=== PATIENT | female | born 1990 | race Caucasian/White ===

== ENCOUNTER 2019-02-13 07:05 | Inpatient (IN) | payer OTHER ==
[~2019-02-13 07:05] MED LIST: Bupivacaine 0.25% 10 ML SDV ONE
[2019-02-13] MEDS ORDERED: Misoprostol 25 MCG (1/4 of 100 MCG) Tab ONE ×3 (07:35→16:04)
[2019-02-13] MEDS: Misoprostol 100 MCG Tab VAG PRN ×3 (07:37→16:13)
[2019-02-13] MEDS ORDERED: Sodium Chloride 0.9% 10 ML Syringe FLUSH PRN (07:40)
[2019-02-13] MEDS ORDERED: Ondansetron 4 MG/2 ML SDV IVPUSH PRN (07:40)
[2019-02-13] MEDS ORDERED: Nalbuphine 10 MG/1 ML Vial IVPUSH PRN (07:40)
[2019-02-13] MEDS ORDERED: Oxytocin/Lactated Ringers 10 UNIT/1,000 ML BAG IV SCH ×2 (07:45)
--- NOTE | 2019-02-13 07:45 | PCM.LDHP ---
L&D History of Present Illness - General Date of Service: 02/13/19 Admit Problem/Dx: Patient Status Order with Admit Dx/Problem 02/13/19 07:40 Patient Status [ADT] Routine Admission Diagnosis/Problem Admission Diagnosis/Problem Normal in third trimester Source of Information: Patient History Limitations: Reports: No Limitations - History of Present Illness Introduction:: Patient is a 28 y/o presents at 40 1/7 wks for IOL. Doing well today. Some titi rtinidad, but no significant contractions. Notes good FM. No other issues today - Related Data Allergies/Adverse Reactions: Allergies Allergy/AdvReac Type Severity Reaction Status Date / Time No Known Allergies Allergy Verified 02/13/19 08:08 Home Medications: Home Meds Enoxaparin Sodium [Lovenox] 40 mg SQ 02/13/19 [History] Ferrous Gluconate 02/13/19 [History] Levothyroxine [Synthroid] 100 mcg PO ACBREAKFAST 02/13/19 [History] Vits #93/Iron Fum/FA [ Formula Tablet] 02/13/19 [History] Past Medical History Respiratory History: Reports: PE (11/2017) ADMISSIONS ASSISTANT History: Reports: Endometriosis, : 1 Para: 0 LMP (Approximate): Endocrine/Metabolic History: Reports: Hypothyroidism - Infectious Disease History Infectious Disease History: Reports: Other (See Below) (Lyme Disease) - Past Surgical History HEENT Surgical History: Reports: Oral Surgery (wisdom tooth extraction) Female Surgical History: Reports: Other (See Below) (Diagnostic laparoscopy/ correction of ovarian torsion) Social & Family History - Tobacco Use Smoking Status *Q: Never Smoker - Alcohol Use Alcohol Use History: No - Recreational Drug Use Recreational Drug Use: No H&P Review of Systems - Review of Systems: Review Of Systems: See Below General: Reports: No Symptoms Pulmonary: Reports: No Symptoms Cardiovascular: Reports: No Symptoms Gastrointestinal: Reports: No Symptoms Genitourinary: Reports: No Symptoms Musculoskeletal: Reports: No Symptoms Psychiatric: Reports: No Symptoms Neurological: Reports: No Symptoms L&D Exam - Exam Exam: See Below - Vital Signs Vital Signs: Last Vital Signs Temp 36.7 C 02/13/19 07:20 Pulse 98 02/13/19 07:20 Resp 14 02/13/19 07:20 BP 118/82 02/13/19 07:20 Pulse Ox 98 02/13/19 07:20 - OB Specific Contraction Intensity: Irritability Movement: Active Heart Tones: Present Heart Tones per Min: 130 Heart Rate (FHR) Variability: Moderate (6-25 bmp) Presentation: Vertex - Medrano Score Medrano Score Cervix Position: Posterior Medrano Score Consistency: Soft Medrano Score Effacement: 51-70% Medrano Score Dilation: 1-2 cm Medrano Score Infant's Station: -1 ,0 Medrano Score Total: 7 - Exam General: Alert, Oriented, Cooperative Lungs: Clear to Auscultation, Normal Respiratory Effort Cardiovascular: Regular Rate, Regular Rhythm GI/Abdominal Exam: Soft, Non-Tender Genitourinary: Normal external exam Extremities: Normal Inspection Skin: Warm, Dry, Intact - Problem List (1) 40 weeks gestation of SNOMED Code(s): 60760683 ICD Code: Z3A.40 - 40 WEEKS GESTATION OF Status: Acute Current Visit: Yes (2) History of pulmonary embolism SNOMED Code(s): 560308929 ICD Code: Z86.711 - PERSONAL HISTORY OF PULMONARY EMBOLISM Status: Acute Current Visit: Yes (3) Hypothyroid SNOMED Code(s): 68154960 ICD Code: E03.9 - HYPOTHYROIDISM, UNSPECIFIED Status: Acute Current Visit : Yes Qualifiers: Hypothyroidism type: unspecified Qualified Code(s): E03.9 - Hypothyroidism , unspecified Problem List Initiated/Reviewed/Updated: Yes Orders Last 24hrs: Active Orders 24 hr Category Date Time Status Patient Status [ADT] Routine ADT 02/13/19 07:40 Ordered Activity as Tolerated [RC] PFP Care 02/13/19 07:40 Ordered Communication Order [RC] ASDIRECTED Care 02/13/19 07:40 Ordered Communication Order [RC] ASDIRECTED Care 02/13/19 07:40 Ordered Communication Order [RC] ASDIRECTED Care 02/13/19 07:40 Ordered Heart Tones [RC] ASDIRECTED Care 02/13/19 07:40 Ordered Monitoring [RC] INTERMITTENT Care 02/13/19 07:40 Ordered Non Stress Test [RC] PER UNIT ROUTINE Care 02/13/19 07:40 Ordered Notify Provider [RC] ASDIRECTED Care 02/13/19 07:40 Ordered Notify Provider [RC] PRN Care 02/13/19 07:40 Ordered Peripheral IV Care [RC] . DIRECTED Care 02/13/19 07:40 Ordered Vital Signs [RC] PER UNIT ROUTINE Care 02/13/19 07:40 Ordered Regular Diet [DIET] Diet 02/13/19 Breakfast Ordered CBC W/O DIFF,HEMOGRAM [HEME] Routine Lab 02/13/19 07:40 Ordered RAPID PLASMA REAGIN,RPR [CHEM] Routine Lab 02/13/19 07:40 Ordered TYPE AND SCREEN [BBK] Routine Lab 02/13/19 07:40 Ordered Lactated Ringers [Ringers, Lactated] 1,000 ml Med 02/13/19 07:45 Ordered IV ASDIRECTED Nalbuphine [Nubain] Med 02/13/19 07:40 Ordered 10 mg IVPUSH Q2H PRN Ondansetron [Zofran] Med 02/13/19 07:40 Ordered 4 mg IVPUSH Q4H PRN Oxytocin/Lactated Ringers [Pitocin in LR 10 Units/1,000 Med 02/13/19 07:45 Ordered ML] 10 unit in 1,000 ml IV .CONTINUOUS Oxytocin/Lactated Ringers [Pitocin in LR 10 Units/1,000 Med 02/13/19 07:45 Ordered ML] 10 unit in 1,000 ml IV TITRATE Sodium Chloride 0.9% [Saline Flush] Med 02/13/19 07:40 Ordered 10 ml FLUSH ASDIRECTED PRN miSOPROStol [Cytotec] Med 02/13/19 07:40 Ordered 25 mcg VAG Q4H PRN Electronic Heart Tones Ext w TOCO [WOMSER] Oth 02/13/19 07:40 Ordered Routine Electronic Heart Tones Internal [WOMSER] Per Unit Oth 02/13/19 07:40 Ordered Routine Medication Administration Instruction [OM.PC] Oth 02/13/19 07:45 Ordered ASDIRECTED Peripheral IV Insertion Adult [OM.PC] Routine Oth 02/13/19 07:40 Ordered Resuscitation Status Routine Resus Stat 02/13/19 07:40 Ordered Medication Orders Lactated Ringer's (Ringers, Lactated) 1,000 mls @ 100 mls/hr IV ASDIRECTED MARIANNA Oxytocin/Lactated Ringer's (Pitocin In Lr 10 Units/1,000 Ml) 10 unit in 1,000 mls @ 500 mls/hr IV .CONTINUOUS MARIANNA Oxytocin/Lactated Ringer's (Pitocin In Lr 10 Units/1,000 Ml) 10 unit in 1,000 mls @ 12 mls/hr IV TITRATE MARIANNA; Protocol Misoprostol (Cytotec) 25 mcg VAG Q4H PRN PRN Reason: cervical ripening Nalbuphine HCl (Nubain) 10 mg IVPUSH Q2H PRN PRN Reason: Pain Ondansetron HCl (Zofran) 4 mg IVPUSH Q4H PRN PRN Reason: Nausea/Vomiting Sodium Chloride (Saline Flush) 10 ml FLUSH ASDIRECTED PRN PRN Reason: Keep Vein Open Assessment/Plan Comment:: 28 y/o at 40 1/7 wks presents for elective IOL * Labs * GBS negative, no need for antibiotics * Cytotec, pitocin/AROM when able * Pain management per patient preference * On prophylactic lovenox, last dose yesterday 02/12 AM. Will restart and plan for 6 weeks treatment * Anticipate
[2019-02-13] MEDS: Lactated Ringers 1,000 ML IV SCH ×3 (18:38→19:42)
[2019-02-13] MEDS ORDERED: fentaNYL 100 MCG/2 ML SDV EPIDUR ONE (19:13)
[2019-02-13] MEDS ORDERED: Bupivacaine/fentaNYL/NS 100 ML Bag EPIDUR SCH (19:15)
[2019-02-13] MEDS ORDERED: fentaNYL 100 MCG/2 ML SDV ONE (19:17)
--- NOTE | 2019-02-13 19:54 | PCM.PREANE ---
Preanesthetic Assessment - Anesthesia/Transfusion/Family Hx Anesthesia History: Prior Anesthesia Without Reaction Family History of Anesthesia Reaction: No Transfusion History: No Prior Transfusion(s) Intubation History: Unknown - Review of Systems General: No Symptoms Pulmonary: No Symptoms Cardiovascular: No Symptoms Gastrointestinal: No Symptoms Neurological: No Symptoms Other: Reports: None - Physical Assessment O2 Sat by Pulse Oximetry: 98 Respiratory Rate: 14 Vital Signs: Last Vital Signs Temp 36.7 C 02/13/19 07:20 Pulse 98 02/13/19 07:20 Resp 14 02/13/19 07:20 BP 118/82 02/13/19 07:20 Pulse Ox 98 02/13/19 07:20 Height: 1.57 m Weight: 70.398 kg ASA Class: 1E Mental Status: Alert & Oriented x3 Airway Class: Mallampati = 1 ROM/Head Extension: Full Lungs: Clear to Auscultation, Normal Respiratory Effort Cardiovascular: Regular Rate, Regular Rhythm, No Murmurs - Lab Values: Laboratory Last Values WBC 6.99 K/mm3 (3.98-10.04) 02/13/19 09:30 RBC 4.15 M/mm3 (3.98-5.22) 02/13/19 09:30 Hgb 11.4 gm/L (11.2-15.7) 02/13/19 09:30 Hct 34.6 % (34.1-44.9) 02/13/19 09:30 MCV 83.4 fl (79.4-94.8) 02/13/19 09:30 MCH 27.5 pg (25.6-32.2) 02/13/19 09:30 MCHC 32.9 g/dl (32.2-35.5) 02/13/19 09:30 RDW Std Deviation 42.9 fL (36.4-46.3) 02/13/19 09:30 Plt Count 137 K/mm3 (182-369) L 02/13/19 09:30 MPV 11.9 fl (9.4-12.3) 02/13/19 09:30 Blood Type A POSITIVE 02/13/19 07:30 Gel Antibody Screen Negative 02/13/19 07:30 - Allergies Allergies/Adverse Reactions: Allergies Allergy/AdvReac Type Severity Reaction Status Date / Time No Known Allergies Allergy Verified 02/13/19 08:08 - Anesthesia Plan Pre-Op Medication Ordered: None - Acknowledgements Anesthesia Type Planned: Epidural Pt an Appropriate Candidate for the Planned Anesthesia: Yes Alternatives and Risks of Anesthesia Discussed w Pt/Guardian: Yes Pt/Guardian Understands and Agrees with Anesthesia Plan: Yes PreAnesthesia Questionnaire Respiratory History: Reports: PE (11/2017) FENCE [employer]ER History: Reports: Endometriosis, Other OB/BYN History: infertility Musculoskeletal History: Reports: Fracture, Other (See Below) Other Musculoskeletal History: fibula fracture 10/2017 Endocrine/Metabolic History: Reports: Hypothyroidism Hematologic History: Reports: Anticoagulation Therapy, Other (See Below) Other Hematologic History: on prophylactic lovenox for history of PE - Infectious Disease History Infectious Disease History: Reports: Other (See Below) (Lyme Disease) Other Infectious Disease History: lyme disease 2003 - Past Surgical History HEENT Surgical History: Reports: Oral Surgery (wisdom tooth extraction) Female Surgical History: Reports: Other (See Below) (Diagnostic laparoscopy/ correction of ovarian torsion) - SUBSTANCE USE Smoking Status *Q: Never Smoker Recreational Drug Use History: No - HOME MEDS Home Medications: Home Meds Enoxaparin Sodium [Lovenox] 40 mg SQ 02/13/19 [History] Ferrous Gluconate 02/13/19 [History] Levothyroxine [Synthroid] 100 mcg PO ACBREAKFAST 02/13/19 [History] Vits #93/Iron Fum/FA [ Formula Tablet] 02/13/19 [History] - CURRENT (IN HOUSE) MEDS Current Meds: Current Medications Fentanyl/Bupivacaine HCl (Fentanyl/Bupivacaine/Ns 2 Mcg-0.125% 100 Ml) 100 ml EPIDUR ASDIRECTED MARIANNA Lactated Ringer's (Ringers, Lactated) 1,000 mls @ 100 mls/hr IV ASDIRECTED MARIANNA Last Admin: 02/13/19 19:42 Dose: 999 mls/hr Oxytocin/Lactated Ringer's (Pitocin In Lr 10 Units/1,000 Ml) 10 unit in 1,000 mls @ 500 mls/hr IV .CONTINUOUS MARIANNA Oxytocin/Lactated Ringer's (Pitocin In Lr 10 Units/1,000 Ml) 10 unit in 1,000 mls @ 12 mls/hr IV TITRATE MARIANNA; Protocol Levothyroxine Sodium (Synthroid) 100 mcg PO ACBREAKFAST MARIANNA Nalbuphine HCl (Nubain) 10 mg IVPUSH Q2H PRN PRN Reason: Pain Ondansetron HCl (Zofran) 4 mg IVPUSH Q4H PRN PRN Reason: Nausea/Vomiting Sodium Chloride (Saline Flush) 10 ml FLUSH ASDIRECTED PRN PRN Reason: Keep Vein Open Discontinued Medications Fentanyl (Sublimaze) 100 mcg EPIDUR ONETIME ONE Stop: 02/13/19 19:14 Fentanyl (Sublimaze) Confirm Administered Dose 100 mcg .ROUTE .STK-MED ONE Stop: 02/13/19 19:18 Misoprostol (Cytotec) Confirm Administered Dose 25 mcg .ROUTE .STK-MED ONE Stop: 02/13/19 07:36 Last Admin: 02/13/19 07:55 Dose: Not Given Misoprostol (Cytotec) 25 mcg VAG Q4H PRN PRN Reason: cervical ripening Last Admin: 02/13/19 16:13 Dose: 25 mcg Misoprostol (Cytotec) Confirm Administered Dose 25 mcg .ROUTE .STK-MED ONE Stop: 02/13/19 11:18 Last Admin: 02/13/19 11:23 Dose: Not Given Misoprostol (Cytotec) Confirm Administered Dose 25 mcg .ROUTE .STK-MED ONE Stop: 02/13/19 16:05 Last Admin: 02/13/19 16:08 Dose: Not Given
--- NOTE | 2019-02-13 19:54 | PCM.POSTAN ---
POST ANESTHESIA ASSESSMENT - MENTAL STATUS Mental Status: Alert - RESPIRATORY Respiratory Status: Respiratory Rate WNL, Airway Patent, O2 Saturation Stable - CARDIOVASCULAR CV Status: Pulse Rate WNL, Blood Pressure Stable - GASTROINTESTINAL GI Status: No Symptoms - POST OP HYDRATION Hydration Status: Adequate & Stable
--- NOTE | 2019-02-13 22:15 | PCM.PNLD ---
Labor Progress Note - VS & Meds Vital Signs: Last Vital Signs Temp 36.7 C 02/13/19 07:20 Pulse 98 02/13/19 07:20 Resp 14 02/13/19 19:54 BP 118/82 02/13/19 07:20 Pulse Ox 98 02/13/19 19:54 Active Medications: Current Medications Fentanyl/Bupivacaine HCl (Fentanyl/Bupivacaine/Ns 2 Mcg-0.125% 100 Ml) 100 ml EPIDUR ASDIRECTED MARIANNA Lactated Ringer's (Ringers, Lactated) 1,000 mls @ 100 mls/hr IV ASDIRECTED MARIANNA Last Admin: 02/13/19 19:42 Dose: 999 mls/hr Oxytocin/Lactated Ringer's (Pitocin In Lr 10 Units/1,000 Ml) 10 unit in 1,000 mls @ 500 mls/hr IV .CONTINUOUS MARIANNA Oxytocin/Lactated Ringer's (Pitocin In Lr 10 Units/1,000 Ml) 10 unit in 1,000 mls @ 12 mls/hr IV TITRATE MARIANNA; Protocol Last Titration: 02/13/19 21:48 Dose: 6 munits/min, 36 mls/hr Levothyroxine Sodium (Synthroid) 100 mcg PO ACBREAKFAST MARIANNA Nalbuphine HCl (Nubain) 10 mg IVPUSH Q2H PRN PRN Reason: Pain Ondansetron HCl (Zofran) 4 mg IVPUSH Q4H PRN PRN Reason: Nausea/Vomiting Sodium Chloride (Saline Flush) 10 ml FLUSH ASDIRECTED PRN PRN Reason: Keep Vein Open Discontinued Medications Fentanyl (Sublimaze) 100 mcg EPIDUR ONETIME ONE Stop: 02/13/19 19:14 Fentanyl (Sublimaze) Confirm Administered Dose 100 mcg .ROUTE .STK-MED ONE Stop: 02/13/19 19:18 Last Admin: 02/13/19 20:04 Dose: Not Given Misoprostol (Cytotec) Confirm Administered Dose 25 mcg .ROUTE .STK-MED ONE Stop: 02/13/19 07:36 Last Admin: 02/13/19 07:55 Dose: Not Given Misoprostol (Cytotec) 25 mcg VAG Q4H PRN PRN Reason: cervical ripening Last Admin: 02/13/19 16:13 Dose: 25 mcg Misoprostol (Cytotec) Confirm Administered Dose 25 mcg .ROUTE .STK-MED ONE Stop: 02/13/19 11:18 Last Admin: 02/13/19 11:23 Dose: Not Given Misoprostol (Cytotec) Confirm Administered Dose 25 mcg .ROUTE .STK-MED ONE Stop: 02/13/19 16:05 Last Admin: 02/13/19 16:08 Dose: Not Given - Uterine Contractions Uterine Monitoring Mode: External [place] Contraction Intensity: Moderate Uterine Resting Tone: Soft - Monitoring Monitor Mode: External Ultrasound Heart Rate (FHR) Baseline: 130 Heart Rate (FHR) Variability: Moderate (6-25 bmp) Accelerations: Present, 15x15 Decelerations: None Strip Review: Category I - Vaginal Exam Dilation (cm): 1.5 Effacement (Percent): 70 Station: -1 Cervical Position: Midposition - Labor Progress (Free Text) Labor Progress: Doing well. Comfortable with epidural. S/p 3 doses of cytotec. Pitocin at 6. Todd bulb replaced (tried to place earlier, but fell out as not completely through cervix). Plan AROM once todd removed
[2019-02-14] MEDS: Lactated Ringers 1,000 ML IV SCH (04:58)
[2019-02-14] MEDS ORDERED: Levothyroxine 100 MCG Tab PO SCH (06:00)
--- NOTE | 2019-02-14 06:15 | PCM.SN ---
- Free Text/Narrative Note: 0600 Contacted by nursing at about 0100 they thought patient was maybe close to 8 cm , but with BBOW. At about 0230 I checked patient and thought at that time she as more like 6-7 and still fairly thick. AROM done at that time with release of meconium stained fluid. Pitocin restarted at about 0300 due to spacing of contraction pattern. Nursing check patient again around 0530 and concerns for minimal cervical change. I checked patient and feels she has slightly changed from my last exam. Now more like 7 cm and slightly thinner. IUPC Placed. Will continue to increase as able and recheck in 2 hours or sooner if indicated Mattie Antonio
--- NOTE | 2019-02-14 08:30 | PCM.SN ---
- Free Text/Narrative Note: 0800 Reassessed cervix and still similar to 0600 check. Pitocin now at 12. Contraction pattern not adequate. IUPC did dislodge with nursing last assessment. Did review concerns of minimal change throughout an extended period of time. Discussed options of replacing IUPC, continuing to increase pitocin and reassess in a few hours vs proceeding with repeat . Patient would like attempt at IUPC replacement and continued pitocin titration if possible. Will reassess at 1000 Mattie Antonio MD
[2019-02-14] MEDS ORDERED: ceFAZolin 2 GM in Premix Bag 1 BAG IV ONE (09:55)
[2019-02-14] MEDS ORDERED: Nalbuphine 10 MG/1 ML Vial IVPUSH PRN (09:55)
[2019-02-14] MEDS ORDERED: Citric Acid/Sodium Citrate Solution 30 ML Cup PO ONE (09:55)
[2019-02-14] MEDS ORDERED: Metoclopramide 10 MG/2 ML SDV IVPUSH ONE (09:55)
--- NOTE | 2019-02-14 09:59 | PCM.SN ---
- Free Text/Narrative Note: 1000 Patient without further change. Agrees to . Risks/benefits reviewed. Consent signed. OR crew alerted
--- NOTE | 2019-02-14 10:06 | PCM.OPNOTE ---
- General Post-Op/Procedure Note Date of Surgery/Procedure: 02/14/19 Operative Procedure(s): Primary low transverse Findings: Baby boy in a vertex presentation with weight of 3390 grams and APGARS of 8 & 9. Normal appearance of the uterus, fallopian tubes, and ovaries. Pre Op Diagnosis: 40 weeks gestation. FTP in 1st stage Post-Op Diagnosis: Same Anesthesia Technique: Epidural Primary Surgeon: Mattie Antonio Secondary Surgeon: Alexandra Pitt Anesthesia Provider: Ranjit Herrera Reason Palliative Nurse Was Necessary: Speed/safety of procedure Pathology: Cord blood collected. Placenta discarded Fluid Replacement, Intraop: 700 Output, Urine Amount: 200 EBL in mLs: 700 Complications: None Condition: Good Free Text/Narrative:: The risks, benefits, indications, potential complications, and alternatives were explained to the patient and informed consent obtained. After induction of anesthesia, the patient was placed in a supine position and then draped and prepped in the usual sterile manner. A Pfannenstiel incision was made and carried down through the subcutaneous tissue to the fascia. Fascial incision was made and extended transversely. The fascia was from the underlying rectus tissue superiorly and inferiorly. The peritoneum was identified and entered. Peritoneal incision was extended longitudinally. The utero-vesical peritoneal reflection was incised transversely and the bladder flap was bluntly freed from the lower uterine segment. A low transverse uterine incision was made sharply with a scalpel and extended bluntly in a cephalocaudad direction. A baby boy was delivered from a vertex presentation with APGARS as above. After the umbilical cord was clamped and cut cord blood was obtained for evaluation. The placenta was removed intact and appeared normal. The uterus was exteriorized and cleared of clots. The uterine outline, tubes and ovaries appeared normal. The uterine incision was closed with running locked sutures of 0 Vicryl. Hemostasis was obtained with a second imbricating layer of 0 vicryl. The uterus was then placed back into the abdomen. The infracolic gutters were cleared of blood clots. The fascia was then reapproximated with running sutures of 0 Vicryl. The subcutaneous tissue was irrigated with sterile warm normal saline, hemostasis obtained with cautery. This layer was also closed with a running 0 vicryl. The skin was reapproximated with running Subcuticular 4-0 monocryl sutures. Instrument, sponge, and needle counts were correct prior the abdominal closure and at the conclusion of the case.
[2019-02-14] MEDS ORDERED: Metoclopramide 10 MG/2 ML SDV ONE (10:16)
[2019-02-14] MEDS ORDERED: Citric Acid/Sodium Citrate Solution 30 ML Cup ONE (10:16)
[2019-02-14] MEDS ORDERED: Oxytocin 10 Units/1 ML SDV ONE ×3 (10:46)
[2019-02-14] MEDS ORDERED: Lidocaine 2% with EPINEPHrine 1:200,000 20 ML SDV ONE ×2 (10:47→11:09)
[2019-02-14] MEDS ORDERED: Bupivacaine 0.25% 10 ML SDV ONE (11:10)
[2019-02-14] MEDS ORDERED: Bupivacaine 0.5% 30 ML SDV ONE (11:13)
[2019-02-14] MEDS ORDERED: Ketorolac 30 MG/ML SDV ONE (11:30)
[2019-02-14] MEDS ORDERED: Midazolam 1 MG/ML 2 ML SDV ONE (11:38)
[2019-02-14] MEDS ORDERED: Meperidine 50 MG/ML Vial ONE (11:44)
--- NOTE | 2019-02-14 12:14 | PCM.POSTAN ---
POST ANESTHESIA ASSESSMENT - RESPIRATORY Respiratory Status: Respiratory Rate WNL, Airway Patent, O2 Saturation Stable, Supplemental Oxygen - CARDIOVASCULAR CV Status: Pulse Rate WNL, Blood Pressure Stable - GASTROINTESTINAL GI Status: No Symptoms - POST OP HYDRATION Hydration Status: Adequate & Stable
[2019-02-14] MEDS ORDERED: Naloxone 0.4 MG/ML SDV IVPUSH PRN (14:54)
[2019-02-14] MEDS ORDERED: Lanolin 100% Cream 7 GM Tube TOP PRN (14:54)
[2019-02-14] MEDS ORDERED: Acetaminophen 325 MG Tab PO PRN (14:54)
[2019-02-14] MEDS ORDERED: diphenhydrAMINE 50 MG/ML SDV IVPUSH PRN (14:54)
[2019-02-14] MEDS ORDERED: Ondansetron 4 MG/2 ML SDV IV PRN (14:54)
[2019-02-14] MEDS ORDERED: ePHEDrine 50 MG/ML SDV IVPUSH PRN (14:54)
[2019-02-14] MEDS ORDERED: Dextrose 5%-Lactated Ringers 1,000 ML IV SCH (14:54)
[2019-02-14] MEDS: Acetaminophen/oxyCODONE 325-5 MG Tab PO PRN ×2 (15:39→20:53)
[2019-02-14] MEDS: Ketorolac 30 MG/ML SDV IVPUSH SCH (17:52)
[2019-02-15] MEDS: Ketorolac 30 MG/ML SDV IVPUSH SCH (00:19)
[2019-02-15] MEDS ORDERED: Enoxaparin 40 MG/0.4 ML Syringe SUBCUT SCH (03:00)
[2019-02-15] MEDS ORDERED: Enoxaparin 40 MG/0.4 ML Syringe SUBCUT ONE (03:00)
[2019-02-15] MEDS: Acetaminophen/oxyCODONE 325-5 MG Tab PO PRN ×4 (03:03→16:39)
[2019-02-15] MEDS: Ibuprofen 600 MG Tab PO PRN ×3 (06:45→20:57)
--- NOTE | 2019-02-15 07:29 | PCM.PNPP ---
- General Info Date of Service: 02/15/19 Functional Status: Reports: Pain Controlled, Tolerating Diet, Ambulating - Review of Systems General: Reports: No Symptoms Pulmonary: Reports: No Symptoms Cardiovascular: Reports: No Symptoms Gastrointestinal: Reports: Abdominal Pain (managed with medications ) Genitourinary: Reports: No Symptoms Musculoskeletal: Reports: No Symptoms Neurological: Reports: No Symptoms - Patient Data Vital Signs - Most Recent: Last Vital Signs Temp 36.2 C 02/15/19 03:04 Pulse 82 02/15/19 03:04 Resp 14 02/15/19 05:00 BP 110/80 02/15/19 03:04 Pulse Ox 100 02/15/19 05:00 Weight - Most Recent: 70.398 kg I&O - Last 24 Hours: Intake & Output 02/14/19 02/15/19 02/15/19 22:59 06:59 14:59 Intake Total 1740 1600 Output Total 1275 1250 Balance 465 350 Lab Results - Last 24 Hours: Laboratory Results - last 24 hr 02/13/19 02/15/19 Range/Units 07:30 05:39 WBC 13.15 H (3.98-10.04) K/mm3 RBC 3.28 L (3.98-5.22) M/mm3 Hgb 9.0 L D (11.2-15.7) gm/L Hct 27.5 L (34.1-44.9) % MCV 83.8 (79.4-94.8) fl MCH 27.4 (25.6-32.2) pg MCHC 32.7 (32.2-35.5) g/dl RDW Std Deviation 43.5 (36.4-46.3) fL Plt Count 108 L (182-369) K/mm3 MPV 10.8 (9.4-12.3) fl RPR Non-reactive (NONREACTIVE) Med Orders - Current: Current Medications Acetaminophen (Tylenol) 650 mg PO Q4H PRN PRN Reason: mild pain or fever Diphenhydramine HCl (Benadryl) 25 mg IVPUSH Q6H PRN PRN Reason: Itching or Nausea Docusate Sodium (Colace) 100 mg PO Q12H PRN PRN Reason: Constipation Emollient Ointment (Lansinoh Hpa) 0 gm TOP ASDIRECTED PRN PRN Reason: Sore Nipples Enoxaparin Sodium (Lovenox) 40 mg SUBCUT DAILY [facility] Last Admin: 02/15/19 03:01 Dose: 40 mg Ephedrine Sulfate (Ephedrine Sulfate) 5 mg IVPUSH SEECOMMENT PRN PRN Reason: Other Ibuprofen (Motrin) 600 mg PO Q6H PRN PRN Reason: mild pain or fever Last Admin: 02/15/19 06:45 Dose: 600 mg Naloxone HCl (Narcan) 0.1 mg IVPUSH SEECOMMENT PRN PRN Reason: Respiratory Depression Ondansetron HCl (Zofran) 4 mg IV Q8H PRN PRN Reason: Nausea/Vomiting Oxycodone/Acetaminophen (Percocet 325-5 Mg) 2 tab PO Q4H PRN PRN Reason: Pain (moderate 4-6) Last Admin: 02/15/19 03:03 Dose: 2 tab Prenat Multivit/[place]/Iron/Folic Ac ( Plus Iron) 1 each PO DAILY MARIANNA Discontinued Medications Bupivacaine HCl (Sensorcaine-Mpf 0.25%) Confirm Administered Dose 10 ml .ROUTE .STK-MED ONE Stop: 02/14/19 11:11 Bupivacaine HCl (Marcaine 0.5%) Confirm Administered Dose 30 ml .ROUTE .STK-MED ONE Stop: 02/14/19 11:14 Last Admin: 02/14/19 11:16 Dose: 13 ml Bupivacaine HCl (Sensorcaine-Mpf 0.25%) 10 ml .ROUTE .STK-MED ONE Stop: 02/13/19 00:01 Citric Acid/Sodium Citrate (Bicitra Solution) Confirm Administered Dose 30 ml .ROUTE .STK-MED ONE Stop: 02/14/19 10:17 Last Admin: 02/14/19 10:47 Dose: Not Given Citric Acid/Sodium Citrate (Bicitra Solution) 30 ml PO ONETIME ONE Stop: 02/14/19 09:56 Last Admin: 02/14/19 11:00 Dose: 30 ml Enoxaparin Sodium (Lovenox) 40 mg SUBCUT ONETIME ONE Stop: 02/15/19 03:01 Fentanyl (Sublimaze) 100 mcg EPIDUR ONETIME ONE Stop: 02/13/19 19:14 Fentanyl (Sublimaze) Confirm Administered Dose 100 mcg .ROUTE .STK-MED ONE Stop: 02/13/19 19:18 Last Admin: 02/13/19 20:04 Dose: Not Given Fentanyl/Bupivacaine HCl (Fentanyl/Bupivacaine/Ns 2 Mcg-0.125% 100 Ml) 100 ml EPIDUR ASDIRECTED [facility] Last Admin: 02/14/19 04:58 Dose: 100 ml Lactated Ringer's (Ringers, Lactated) 1,000 mls @ 100 mls/hr IV ASDIRECTED [facility] Last Admin: 02/14/19 04:58 Dose: 100 mls/hr Oxytocin/Lactated Ringer's (Pitocin In Lr 10 Units/1,000 Ml) 10 unit in 1,000 mls @ 500 mls/hr IV .CONTINUOUS MARIANNA Oxytocin/Lactated Ringer's (Pitocin In Lr 10 Units/1,000 Ml) 10 unit in 1,000 mls @ 12 mls/hr IV TITRATE MARIANNA; Protocol Last Titration: 02/14/19 09:48 Dose: 0 munits/min, 0 mls/hr Cefazolin Sodium/Dextrose 2 gm (/ Premix) 50 mls @ 100 mls/hr IV ONETIME ONE Stop: 02/14/19 10:24 Dextrose/Lactated Ringer's (Dextrose 5%-Lactated Ringers) 1,000 mls @ 125 mls/ hr IV ASDIRECTED [facility] Stop: 02/14/19 22:53 Last Admin: 02/14/19 15:15 Dose: 125 mls/hr Ketorolac Tromethamine (Toradol) Confirm Administered Dose 30 mg .ROUTE .STK- MED ONE Stop: 02/14/19 11:31 Ketorolac Tromethamine (Toradol) 30 mg IVPUSH Q6H [facility] Stop: 02/15/19 00:01 Last Admin: 02/15/19 00:19 Dose: 30 mg Levothyroxine Sodium (Synthroid) 100 mcg PO ACBREAKFAST [facility] Last Admin: 02/14/19 06:58 Dose: 100 mcg Lidocaine/Epinephrine (Xylocaine-Mpf 2%-Epi 1:200,000) Confirm Administered Dose 20 ml .ROUTE .STK-MED ONE Stop: 02/14/19 10:48 Lidocaine/Epinephrine (Xylocaine-Mpf 2%-Epi 1:200,000) Confirm Administered Dose 20 ml .ROUTE .STK-MED ONE Stop: 02/14/19 11:10 Meperidine HCl (Meperidine) Confirm Administered Dose 50 mg .ROUTE .STK-MED ONE Stop: 02/14/19 11:45 Metoclopramide HCl (Reglan) Confirm Administered Dose 10 mg .ROUTE .STK-MED ONE Stop: 02/14/19 10:17 Last Admin: 02/14/19 10:47 Dose: Not Given Metoclopramide HCl (Reglan) 10 mg IVPUSH ONETIME ONE Stop: 02/14/19 09:56 Last Admin: 02/14/19 11:00 Dose: 10 mg Midazolam HCl (Versed 1 Mg/Ml) Confirm Administered Dose 2 mg .ROUTE .STK-MED ONE Stop: 02/14/19 11:39 Misoprostol (Cytotec) Confirm Administered Dose 25 mcg .ROUTE .STK-MED ONE Stop: 02/13/19 07:36 Last Admin: 02/13/19 07:55 Dose: Not Given Misoprostol (Cytotec) 25 mcg VAG Q4H PRN PRN Reason: cervical ripening Last Admin: 02/13/19 16:13 Dose: 25 mcg Misoprostol (Cytotec) Confirm Administered Dose 25 mcg .ROUTE .STK-MED ONE Stop: 02/13/19 11:18 Last Admin: 02/13/19 11:23 Dose: Not Given Misoprostol (Cytotec) Confirm Administered Dose 25 mcg .ROUTE .STK-MED ONE Stop: 02/13/19 16:05 Last Admin: 02/13/19 16:08 Dose: Not Given Nalbuphine HCl (Nubain) 10 mg IVPUSH Q2H PRN PRN Reason: Pain Nalbuphine HCl (Nubain) 10 mg IVPUSH Q2H PRN PRN Reason: Pain Ferrous Gluconate (27mg) 27 mg PO DAILY MARIANNA Ondansetron HCl (Zofran) 4 mg IVPUSH Q4H PRN PRN Reason: Nausea/Vomiting Last Admin: 02/14/19 08:07 Dose: 4 mg Oxytocin (Pitocin) Confirm Administered Dose 10 unit .ROUTE .STK-MED ONE Stop: 02/14/19 10:47 Oxytocin (Pitocin) Confirm Administered Dose 10 unit .ROUTE .STK-MED ONE Stop: 02/14/19 10:47 Oxytocin (Pitocin) Confirm Administered Dose 10 unit .ROUTE .STK-MED ONE Stop: 02/14/19 10:47 Sodium Chloride (Saline Flush) 10 ml FLUSH ASDIRECTED PRN PRN Reason: Keep Vein Open - Interaction Disposition, : [place] in Room with Family Infant Interaction: Holding Infant Feeding: Attempted ; Nursed Fair/Poor Support Person: - Recovery Exam Fundal Tone: Firm Fundal Level: At Umbilicus Fundal Placement: Midline Lochia Amount: Scant, Small Lochia Color: Rubra/Red Perineum Description: Intact, Minimal Bruising/Swelling Episiotomy/Laceration: Approximated Bladder Status: Indwelling Catheter in Place Urinary Elimination: Indwelling Catheter - Exam General: Alert, Oriented, Cooperative Lungs: Clear to Auscultation, Normal Respiratory Effort Cardiovascular: Regular Rate, Regular Rhythm GI/Abdominal Exam: Soft, Tender (appropriate post op) Extremities: Normal Inspection Skin: Warm, Dry, Intact Wound/Incisions: Dressing Dry and Intact - Problem List & Annotations (1) 40 weeks gestation of SNOMED Code(s): 21529531 Code(s): Z3A.40 - 40 WEEKS GESTATION OF Status: Acute Current Visit: Yes (2) History of pulmonary embolism SNOMED Code(s): 844210445 Code(s): Z86.711 - PERSONAL HISTORY OF PULMONARY EMBOLISM Status: Acute Current Visit: Yes (3) Hypothyroid SNOMED Code(s): 86177235 Code(s): E03.9 - HYPOTHYROIDISM, UNSPECIFIED Status: Acute Current Visit : Yes Qualifiers: Hypothyroidism type: unspecified Qualified Code(s): E03.9 - Hypothyroidism , unspecified (4) Failure to progress in first stage of labor SNOMED Code(s): 415524685 Code(s): MIZ2971 - Status: Acute Current Visit: Yes (5) S/P primary low transverse SNOMED Code(s): 205318275, 95375296, 172903811, 680822732, 634484108 Code(s): Z98.891 - HISTORY OF UTERINE SCAR FROM PREVIOUS SURGERY Status: Acute Current Visit: Yes - Problem List Review Problem List Initiated/Reviewed/Updated: Yes - My Orders Last 24 Hours: My Active Orders 02/14/19 14:54 Activity as Tolerated [RC] .Routine Communication Order [RC] PER UNIT ROUTINE Intake and Output [RC] Q4H Notify Provider Intake and Out [RC] ASDIRECTED RT Incentive Spirometry [RC] Q2HWA Vital Signs [RC] Q4HR Acetaminophen [Tylenol] 650 mg PO Q4H PRN Acetaminophen/oxyCODONE [Percocet 325-5 MG] 2 tab PO Q4H PRN Docusate Sodium [Colace] 100 mg PO Q12H PRN Lanolin [Lansinoh HPA] See Dose Instructions TOP ASDIRECTED PRN Naloxone [Narcan] 0.1 mg IVPUSH SEECOMMENT PRN Ondansetron [Zofran] 4 mg IV Q8H PRN diphenhydrAMINE [Benadryl] 25 mg IVPUSH Q6H PRN ePHEDrine [ePHEDrine sulfate] 5 mg IVPUSH SEECOMMENT PRN Assess Lochia [WOMSER] Per Unit Routine Assess Uterine Involution [WOMSER] Per Unit Routine Breast Pump [WOMSER] Per Unit Routine Peripheral IV Discontinue [OM.PC] Routine Sequential Compression Device [OM.PC] Per Unit Routine 02/14/19 Lunch Regular Diet [DIET] 02/15/19 03:00 Enoxaparin [Lovenox] 40 mg SUBCUT DAILY 02/15/19 06:00 Ibuprofen [Motrin] 600 mg PO Q6H PRN 02/15/19 09:00 Vit with Ca/FA/Iron [ Plus Iron] 1 each PO DAILY - Assessment Assessment:: 28 y/o G1 now P1001 POD#1 from [facility] at 40 2/7 wks for FTP in 1st stage - Plan Plan:: Post op * Routine cares * Breast feeding * Lovenox restarted, to be used for 6 weeks * Discharge home in 1-2 days
[2019-02-15] MEDS: Docusate Sodium 100 MG Cap PO PRN ×2 (08:28→20:57)
--- NOTE | 2019-02-15 09:51 | PCM48HPAN ---
Post Anesthesia Note - EVALUATION WITHIN 48HRS OF ANESTHETIC Vital Signs in Normal Range: Yes Patient Participated in Evaluation: Yes Respiratory Function Stable: Yes Airway Patent: Yes Cardiovascular Function Stable: Yes Hydration Status Stable: Yes Pain Control Satisfactory: Yes Nausea and Vomiting Control Satisfactory: Yes Mental Status Recovered: Yes Pulse Rate: 82 Resp Rate: 16 Temperature: 36.2 C Blood Pressure: 110/80
[2019-02-15] MEDS: Prenatal Multivitamin with Calcium/Folic Acid/Iron Tab PO SCH (18:49)
[2019-02-16] MEDS: Acetaminophen/oxyCODONE 325-5 MG Tab PO PRN ×2 (02:16→07:51)
[2019-02-16] MEDS ORDERED: Enoxaparin 40 MG/0.4 ML Syringe SUBCUT SCH (05:00)
[2019-02-16] MEDS: Ibuprofen 600 MG Tab PO PRN (06:11)
--- NOTE | 2019-02-16 06:19 | PCM.PNPP ---
- General Info Date of Service: 02/16/19 Functional Status: Reports: Pain Controlled, Tolerating Diet, Ambulating, Urinating - Review of Systems General: Reports: No Symptoms Pulmonary: Reports: No Symptoms Cardiovascular: Reports: No Symptoms Gastrointestinal: Reports: Abdominal Pain (managed with medications ) Genitourinary: Reports: No Symptoms Musculoskeletal: Reports: No Symptoms Neurological: Reports: No Symptoms - Patient Data Vital Signs - Most Recent: Last Vital Signs Temp 36.4 C 02/16/19 02:21 Pulse 78 02/16/19 02:21 Resp 14 02/16/19 02:21 BP 103/65 02/16/19 02:21 Pulse Ox 98 02/16/19 02:21 Weight - Most Recent: 70.398 kg I&O - Last 24 Hours: Intake & Output 02/15/19 02/15/19 02/16/19 14:59 22:59 06:59 Intake Total 200 200 Output Total 450 Balance -250 200 Med Orders - Current: Current Medications Acetaminophen (Tylenol) 650 mg PO Q4H PRN PRN Reason: mild pain or fever Diphenhydramine HCl (Benadryl) 25 mg IVPUSH Q6H PRN PRN Reason: Itching or Nausea Docusate Sodium (Colace) 100 mg PO Q12H PRN PRN Reason: Constipation Last Admin: 02/15/19 20:57 Dose: 100 mg Emollient Ointment (Lansinoh Hpa) 0 gm TOP ASDIRECTED PRN PRN Reason: Sore Nipples Enoxaparin Sodium (Lovenox) 40 mg SUBCUT DAILY@0500 MARIANNA Last Admin: 02/16/19 05:16 Dose: 40 mg Ephedrine Sulfate (Ephedrine Sulfate) 5 mg IVPUSH SEECOMMENT PRN PRN Reason: Other Ibuprofen (Motrin) 600 mg PO Q6H PRN PRN Reason: mild pain or fever Last Admin: 02/16/19 06:11 Dose: 600 mg Naloxone HCl (Narcan) 0.1 mg IVPUSH SEECOMMENT PRN PRN Reason: Respiratory Depression Ondansetron HCl (Zofran) 4 mg IV Q8H PRN PRN Reason: Nausea/Vomiting Last Admin: 02/15/19 10:11 Dose: 4 mg Oxycodone/Acetaminophen (Percocet 325-5 Mg) 2 tab PO Q4H PRN PRN Reason: Pain (moderate 4-6) Last Admin: 02/16/19 02:16 Dose: 1 tab Prenat Multivit/[place]/Iron/Folic Ac ( Plus Iron) 1 each PO DAILY [facility] Last Admin: 02/15/19 18:49 Dose: 1 each Discontinued Medications Bupivacaine HCl (Sensorcaine-Mpf 0.25%) Confirm Administered Dose 10 ml .ROUTE .STK-MED ONE Stop: 02/14/19 11:11 Bupivacaine HCl (Marcaine 0.5%) Confirm Administered Dose 30 ml .ROUTE .STK-MED ONE Stop: 02/14/19 11:14 Last Admin: 02/14/19 11:16 Dose: 13 ml Bupivacaine HCl (Sensorcaine-Mpf 0.25%) 10 ml .ROUTE .STK-MED ONE Stop: 02/13/19 00:01 Citric Acid/Sodium Citrate (Bicitra Solution) Confirm Administered Dose 30 ml .ROUTE .STK-MED ONE Stop: 02/14/19 10:17 Last Admin: 02/14/19 10:47 Dose: Not Given Citric Acid/Sodium Citrate (Bicitra Solution) 30 ml PO ONETIME ONE Stop: 02/14/19 09:56 Last Admin: 02/14/19 11:00 Dose: 30 ml Enoxaparin Sodium (Lovenox) 40 mg SUBCUT DAILY [facility] Last Admin: 02/15/19 03:01 Dose: 40 mg Enoxaparin Sodium (Lovenox) 40 mg SUBCUT ONETIME ONE Stop: 02/15/19 03:01 Fentanyl (Sublimaze) 100 mcg EPIDUR ONETIME ONE Stop: 02/13/19 19:14 Fentanyl (Sublimaze) Confirm Administered Dose 100 mcg .ROUTE .STK-MED ONE Stop: 02/13/19 19:18 Last Admin: 02/13/19 20:04 Dose: Not Given Fentanyl/Bupivacaine HCl (Fentanyl/Bupivacaine/Ns 2 Mcg-0.125% 100 Ml) 100 ml EPIDUR ASDIRECTED [facility] Last Admin: 02/14/19 04:58 Dose: 100 ml Lactated Ringer's (Ringers, Lactated) 1,000 mls @ 100 mls/hr IV ASDIRECTED [facility] Last Admin: 02/14/19 04:58 Dose: 100 mls/hr Oxytocin/Lactated Ringer's (Pitocin In Lr 10 Units/1,000 Ml) 10 unit in 1,000 mls @ 500 mls/hr IV .CONTINUOUS MARIANNA Oxytocin/Lactated Ringer's (Pitocin In Lr 10 Units/1,000 Ml) 10 unit in 1,000 mls @ 12 mls/hr IV TITRATE MARIANNA; Protocol Last Titration: 02/14/19 09:48 Dose: 0 munits/min, 0 mls/hr Cefazolin Sodium/Dextrose 2 gm (/ Premix) 50 mls @ 100 mls/hr IV ONETIME ONE Stop: 02/14/19 10:24 Dextrose/Lactated Ringer's (Dextrose 5%-Lactated Ringers) 1,000 mls @ 125 mls/ hr IV ASDIRECTED [facility] Stop: 02/14/19 22:53 Last Admin: 02/14/19 15:15 Dose: 125 mls/hr Ketorolac Tromethamine (Toradol) Confirm Administered Dose 30 mg .ROUTE .STK- MED ONE Stop: 02/14/19 11:31 Ketorolac Tromethamine (Toradol) 30 mg IVPUSH Q6H [facility] Stop: 02/15/19 00:01 Last Admin: 02/15/19 00:19 Dose: 30 mg Levothyroxine Sodium (Synthroid) 100 mcg PO ACBREAKFAST [facility] Last Admin: 02/14/19 06:58 Dose: 100 mcg Lidocaine/Epinephrine (Xylocaine-Mpf 2%-Epi 1:200,000) Confirm Administered Dose 20 ml .ROUTE .STK-MED ONE Stop: 02/14/19 10:48 Lidocaine/Epinephrine (Xylocaine-Mpf 2%-Epi 1:200,000) Confirm Administered Dose 20 ml .ROUTE .STK-MED ONE Stop: 02/14/19 11:10 Meperidine HCl (Meperidine) Confirm Administered Dose 50 mg .ROUTE .STK-MED ONE Stop: 02/14/19 11:45 Metoclopramide HCl (Reglan) Confirm Administered Dose 10 mg .ROUTE .STK-MED ONE Stop: 02/14/19 10:17 Last Admin: 02/14/19 10:47 Dose: Not Given Metoclopramide HCl (Reglan) 10 mg IVPUSH ONETIME ONE Stop: 02/14/19 09:56 Last Admin: 02/14/19 11:00 Dose: 10 mg Midazolam HCl (Versed 1 Mg/Ml) Confirm Administered Dose 2 mg .ROUTE .STK-MED ONE Stop: 02/14/19 11:39 Misoprostol (Cytotec) Confirm Administered Dose 25 mcg .ROUTE .STK-MED ONE Stop: 02/13/19 07:36 Last Admin: 02/13/19 07:55 Dose: Not Given Misoprostol (Cytotec) 25 mcg VAG Q4H PRN PRN Reason: cervical ripening Last Admin: 02/13/19 16:13 Dose: 25 mcg Misoprostol (Cytotec) Confirm Administered Dose 25 mcg .ROUTE .STK-MED ONE Stop: 02/13/19 11:18 Last Admin: 02/13/19 11:23 Dose: Not Given Misoprostol (Cytotec) Confirm Administered Dose 25 mcg .ROUTE .STK-MED ONE Stop: 02/13/19 16:05 Last Admin: 02/13/19 16:08 Dose: Not Given Nalbuphine HCl (Nubain) 10 mg IVPUSH Q2H PRN PRN Reason: Pain Nalbuphine HCl (Nubain) 10 mg IVPUSH Q2H PRN PRN Reason: Pain Ferrous Gluconate (27mg) 27 mg PO DAILY MARIANNA Ondansetron HCl (Zofran) 4 mg IVPUSH Q4H PRN PRN Reason: Nausea/Vomiting Last Admin: 02/14/19 08:07 Dose: 4 mg Oxytocin (Pitocin) Confirm Administered Dose 10 unit .ROUTE .STK-MED ONE Stop: 02/14/19 10:47 Oxytocin (Pitocin) Confirm Administered Dose 10 unit .ROUTE .STK-MED ONE Stop: 02/14/19 10:47 Oxytocin (Pitocin) Confirm Administered Dose 10 unit .ROUTE .STK-MED ONE Stop: 02/14/19 10:47 Sodium Chloride (Saline Flush) 10 ml FLUSH ASDIRECTED PRN PRN Reason: Keep Vein Open - Interaction Disposition, : in Room with Family Infant Interaction: Holding Infant Feeding: Bottle Fed Infant, Other (see below) (PUmping ) Support Person: - Recovery Exam Fundal Tone: Firm Fundal Level: 1 Fingerbreadths Below Umbilicus Fundal Placement: Midline Lochia Amount: Scant Lochia Color: Rubra/Red Perineum Description: Intact, Minimal Bruising/Swelling Episiotomy/Laceration: Approximated Bladder Status: Voiding Urinary Elimination: Voided - Exam General: Alert, Oriented, Cooperative Lungs: Clear to Auscultation, Normal Respiratory Effort Cardiovascular: Regular Rate, Regular Rhythm GI/Abdominal Exam: Soft, Tender (appropriate post op) Extremities: Normal Inspection Skin: Warm, Dry, Intact Wound/Incisions: Healing Well, No Drainage - Problem List & Annotations (1) 40 weeks gestation of SNOMED Code(s): 70166132 Code(s): Z3A.40 - 40 WEEKS GESTATION OF Status: Acute Current Visit: Yes (2) History of pulmonary embolism SNOMED Code(s): 469643099 Code(s): Z86.711 - PERSONAL HISTORY OF PULMONARY EMBOLISM Status: Acute Current Visit: Yes (3) Hypothyroid SNOMED Code(s): 46673536 Code(s): E03.9 - HYPOTHYROIDISM, UNSPECIFIED Status: Acute Current Visit : Yes Qualifiers: Hypothyroidism type: unspecified Qualified Code(s): E03.9 - Hypothyroidism , unspecified (4) Failure to progress in first stage of labor SNOMED Code(s): 151150893 Code(s): UCV7582 - Status: Acute Current Visit: Yes (5) S/P primary low transverse SNOMED Code(s): 848638196, 18342661, 260483546, 247094928, 690521179 Code(s): Z98.891 - HISTORY OF UTERINE SCAR FROM PREVIOUS SURGERY Status: Acute Current Visit: Yes - Problem List Review Problem List Initiated/Reviewed/Updated: Yes - My Orders Last 24 Hours: My Active Orders 02/15/19 06:00 Ibuprofen [Motrin] 600 mg PO Q6H PRN 02/15/19 09:00 Vit with Ca/FA/Iron [ Plus Iron] 1 each PO DAILY 02/16/19 05:00 Enoxaparin [Lovenox] 40 mg SUBCUT DAILY@0500 - Assessment Assessment:: 28 y/o G1 now P1001 POD#2 from [facility] at 40 2/7 wks for FTP in 1st stage - Plan Plan:: Post op * Routine cares * Pumping and bottle feeding * Lovenox for 6 weeks * Discharge home today
--- NOTE | 2019-02-16 06:34 | PCM.DCSUM1 ---
Discharge Summary - Discharge Data Discharge Date: 02/16/19 Discharge Disposition: Home, Self-Care 01 Condition: Good - Discharge Diagnosis/Problem(s) (1) 40 weeks gestation of SNOMED Code(s): 98539784 ICD Code: Z3A.40 - 40 WEEKS GESTATION OF Status: Acute Current Visit: Yes (2) History of pulmonary embolism SNOMED Code(s): 914446835 ICD Code: Z86.711 - PERSONAL HISTORY OF PULMONARY EMBOLISM Status: Acute Current Visit: Yes (3) Hypothyroid SNOMED Code(s): 74443624 ICD Code: E03.9 - HYPOTHYROIDISM, UNSPECIFIED Status: Acute Current Visit : Yes Qualifiers: Hypothyroidism type: unspecified Qualified Code(s): E03.9 - Hypothyroidism , unspecified (4) Failure to progress in first stage of labor SNOMED Code(s): 702316814 ICD Code: [id number] - Status: Acute Current Visit: Yes (5) S/P primary low transverse SNOMED Code(s): 628372026, 65394677, 668310602, [id number], [id number] ICD Code: Z98.891 - HISTORY OF UTERINE SCAR FROM PREVIOUS SURGERY Status: Acute Current Visit: Yes - Patient Summary/Data Operative Procedure(s) Performed: Primary low transverse Complications: None Consults: None Recommended Follow-up Testing/Procedures: Follow up in 1 week for incision check Hospital Course: Patient is a 28-year-old who presented for induction of labor at 40-1/7 weeks gestation. This was done initially with Cytotec and Moy bulb placement. She then transition to Pitocin and AROM. She did progress to about 7 cm, but despite IUPC placement and adequate contractions could not progress beyond this dilation. She was taken for primary . See operative note for full details. she did well. Her Lovenox was restarted on the first day after surgery. She was discharged to home on postoperative day 2 - Patient Instructions Diet: Regular Diet as Tolerated Activity: As Tolerated Activity, Other: Pelvic rest for 6 weeks Driving: May Drive Today Showering/Bathing: May Shower Showering/Bathing, Other: May Bathe Notify Provider of: Fever, Increased Pain, Drainage, Nausea and/or Vomiting - Discharge Plan *PRESCRIPTION DRUG MONITORING PROGRAM REVIEWED*: Not Applicable *COPY OF PRESCRIPTION DRUG MONITORING REPORT IN PATIENT SABINE: Not Applicable Prescriptions/Med Rec: Acetaminophen/oxyCODONE [Percocet 325-5 MG] 2 tab PO Q4H PRN #25 tablet PRN Reason: Pain (Moderate 4-6) Home Medications: Home Meds Enoxaparin Sodium [Lovenox] 40 mg SQ DAILY 02/13/19 [History] Levothyroxine [Synthroid] 100 mcg PO ACBREAKFAST 02/13/19 [History] Vits #93/Iron Fum/FA [ Formula Tablet] 1 tab PO DAILY 02/13/19 [History] Acetaminophen/oxyCODONE [Percocet 325-5 MG] 2 tab PO Q4H PRN #25 tablet [Rx] Docusate Sodium [Colace] 100 mg PO Q12H PRN cap 02/15/19 [Rx] Ibuprofen [Motrin] 600 mg PO Q6H PRN tablet 02/15/19 [Rx] Patient Handouts: Delivery, Care After Referrals: Mattie Antonio MD [Primary Care Provider] - (2 weeks for post op check) - Discharge Summary/Plan Comment DC Time >30 min.: No - Patient Data Vitals - Most Recent: Last Vital Signs Temp 36.4 C 02/16/19 02:21 Pulse 78 02/16/19 02:21 Resp 14 02/16/19 02:21 BP 103/65 02/16/19 02:21 Pulse Ox 98 02/16/19 02:21 Weight - Most Recent: 70.398 kg I&O - Last 24 hours: Intake & Output 02/15/19 02/15/19 02/16/19 14:59 22:59 06:59 Intake Total 200 200 Output Total 450 Balance -250 200 Med Orders - Current: Current Medications Acetaminophen (Tylenol) 650 mg PO Q4H PRN PRN Reason: mild pain or fever Diphenhydramine HCl (Benadryl) 25 mg IVPUSH Q6H PRN PRN Reason: Itching or Nausea Docusate Sodium (Colace) 100 mg PO Q12H PRN PRN Reason: Constipation Last Admin: 02/15/19 20:57 Dose: 100 mg Emollient Ointment (Lansinoh Hpa) 0 gm TOP ASDIRECTED PRN PRN Reason: Sore Nipples Enoxaparin Sodium (Lovenox) 40 mg SUBCUT DAILY@0500 [facility] Last Admin: 02/16/19 05:16 Dose: 40 mg Ephedrine Sulfate (Ephedrine Sulfate) 5 mg IVPUSH SEECOMMENT PRN PRN Reason: Other Ibuprofen (Motrin) 600 mg PO Q6H PRN PRN Reason: mild pain or fever Last Admin: 02/16/19 06:11 Dose: 600 mg Naloxone HCl (Narcan) 0.1 mg IVPUSH SEECOMMENT PRN PRN Reason: Respiratory Depression Ondansetron HCl (Zofran) 4 mg IV Q8H PRN PRN Reason: Nausea/Vomiting Last Admin: 02/15/19 10:11 Dose: 4 mg Oxycodone/Acetaminophen (Percocet 325-5 Mg) 2 tab PO Q4H PRN PRN Reason: Pain (moderate 4-6) Last Admin: 02/16/19 02:16 Dose: 1 tab Prenat Multivit/[place]iver/Iron/Folic Ac ( Plus Iron) 1 each PO DAILY [facility] Last Admin: 02/15/19 18:49 Dose: 1 each Discontinued Medications Bupivacaine HCl (Sensorcaine-Mpf 0.25%) Confirm Administered Dose 10 ml .ROUTE .STK-MED ONE Stop: 02/14/19 11:11 Bupivacaine HCl (Marcaine 0.5%) Confirm Administered Dose 30 ml .ROUTE .STK-MED ONE Stop: 02/14/19 11:14 Last Admin: 02/14/19 11:16 Dose: 13 ml Bupivacaine HCl (Sensorcaine-Mpf 0.25%) 10 ml .ROUTE .STK-MED ONE Stop: 02/13/19 00:01 Citric Acid/Sodium Citrate (Bicitra Solution) Confirm Administered Dose 30 ml .ROUTE .STK-MED ONE Stop: 02/14/19 10:17 Last Admin: 02/14/19 10:47 Dose: Not Given Citric Acid/Sodium Citrate (Bicitra Solution) 30 ml PO ONETIME ONE Stop: 02/14/19 09:56 Last Admin: 02/14/19 11:00 Dose: 30 ml Enoxaparin Sodium (Lovenox) 40 mg SUBCUT DAILY [facility] Last Admin: 02/15/19 03:01 Dose: 40 mg Enoxaparin Sodium (Lovenox) 40 mg SUBCUT ONETIME ONE Stop: 02/15/19 03:01 Fentanyl (Sublimaze) 100 mcg EPIDUR ONETIME ONE Stop: 02/13/19 19:14 Fentanyl (Sublimaze) Confirm Administered Dose 100 mcg .ROUTE .STK-MED ONE Stop: 02/13/19 19:18 Last Admin: 02/13/19 20:04 Dose: Not Given Fentanyl/Bupivacaine HCl (Fentanyl/Bupivacaine/Ns 2 Mcg-0.125% 100 Ml) 100 ml EPIDUR ASDIRECTED [facility] Last Admin: 02/14/19 04:58 Dose: 100 ml Lactated Ringer's (Ringers, Lactated) 1,000 mls @ 100 mls/hr IV ASDIRECTED MARIANNA Last Admin: 02/14/19 04:58 Dose: 100 mls/hr Oxytocin/Lactated Ringer's (Pitocin In Lr 10 Units/1,000 Ml) 10 unit in 1,000 mls @ 500 mls/hr IV .CONTINUOUS MARIANNA Oxytocin/Lactated Ringer's (Pitocin In Lr 10 Units/1,000 Ml) 10 unit in 1,000 mls @ 12 mls/hr IV TITRATE MARIANNA; Protocol Last Titration: 02/14/19 09:48 Dose: 0 munits/min, 0 mls/hr Cefazolin Sodium/Dextrose 2 gm (/ Premix) 50 mls @ 100 mls/hr IV ONETIME ONE Stop: 02/14/19 10:24 Dextrose/Lactated Ringer's (Dextrose 5%-Lactated Ringers) 1,000 mls @ 125 mls/ hr IV ASDIRECTED [facility] Stop: 02/14/19 22:53 Last Admin: 02/14/19 15:15 Dose: 125 mls/hr Ketorolac Tromethamine (Toradol) Confirm Administered Dose 30 mg .ROUTE .STK- MED ONE Stop: 02/14/19 11:31 Ketorolac Tromethamine (Toradol) 30 mg IVPUSH Q6H [facility] Stop: 02/15/19 00:01 Last Admin: 02/15/19 00:19 Dose: 30 mg Levothyroxine Sodium (Synthroid) 100 mcg PO ACBREAKFAST [facility] Last Admin: 02/14/19 06:58 Dose: 100 mcg Lidocaine/Epinephrine (Xylocaine-Mpf 2%-Epi 1:200,000) Confirm Administered Dose 20 ml .ROUTE .STK-MED ONE Stop: 02/14/19 10:48 Lidocaine/Epinephrine (Xylocaine-Mpf 2%-Epi 1:200,000) Confirm Administered Dose 20 ml .ROUTE .STK-MED ONE Stop: 02/14/19 11:10 Meperidine HCl (Meperidine) Confirm Administered Dose 50 mg .ROUTE .STK-MED ONE Stop: 02/14/19 11:45 Metoclopramide HCl (Reglan) Confirm Administered Dose 10 mg .ROUTE .ST-MED ONE Stop: 02/14/19 10:17 Last Admin: 02/14/19 10:47 Dose: Not Given Metoclopramide HCl (Reglan) 10 mg IVPUSH ONETIME ONE Stop: 02/14/19 09:56 Last Admin: 02/14/19 11:00 Dose: 10 mg Midazolam HCl (Versed 1 Mg/Ml) Confirm Administered Dose 2 mg .ROUTE .[facility]-MED ONE Stop: 02/14/19 11:39 Misoprostol (Cytotec) Confirm Administered Dose 25 mcg .ROUTE .[facility]-MED ONE Stop: 02/13/19 07:36 Last Admin: 02/13/19 07:55 Dose: Not Given Misoprostol (Cytotec) 25 mcg VAG Q4H PRN PRN Reason: cervical ripening Last Admin: 02/13/19 16:13 Dose: 25 mcg Misoprostol (Cytotec) Confirm Administered Dose 25 mcg .ROUTE .STK-MED ONE Stop: 02/13/19 11:18 Last Admin: 02/13/19 11:23 Dose: Not Given Misoprostol (Cytotec) Confirm Administered Dose 25 mcg .ROUTE .STK-MED ONE Stop: 02/13/19 16:05 Last Admin: 02/13/19 16:08 Dose: Not Given Nalbuphine HCl (Nubain) 10 mg IVPUSH Q2H PRN PRN Reason: Pain Nalbuphine HCl (Nubain) 10 mg IVPUSH Q2H PRN PRN Reason: Pain Ferrous Gluconate (27mg) 27 mg PO DAILY [facility]IANNA Ondansetron HCl (Zofran) 4 mg IVPUSH Q4H PRN PRN Reason: Nausea/Vomiting Last Admin: 02/14/19 08:07 Dose: 4 mg Oxytocin (Pitocin) Confirm Administered Dose 10 unit .ROUTE .STK-MED ONE Stop: 02/14/19 10:47 Oxytocin (Pitocin) Confirm Administered Dose 10 unit .ROUTE .STK-MED ONE Stop: 02/14/19 10:47 Oxytocin (Pitocin) Confirm Administered Dose 10 unit .ROUTE .STK-MED ONE Stop: 02/14/19 10:47 Sodium Chloride (Saline Flush) 10 ml FLUSH ASDIRECTED PRN PRN Reason: Keep Vein Open
[2019-02-16] MEDS: Docusate Sodium 100 MG Cap PO PRN (07:52)
[2019-02-16] MEDS: Prenatal Multivitamin with Calcium/Folic Acid/Iron Tab PO SCH (08:22)
== END 2019-02-16 13:35 | disposition home or self-care (01) | DRG 788 ==
LOC: JD.OB 07:05 → OBSVTOIN 11:22 → JD.OB 11:22
PROVIDERS: ADMIT Obstetrics & Gynecology; ATTEND Obstetrics & Gynecology
PROC: 10D00Z1 Extraction of Products of Conception, Low, Open Approach (ICD-10-PCS; principal; 2019-02-14)
PROC: 10H07YZ Insertion of Other Device into Products of Conception, Via Natural or Artificial Opening (ICD-10-PCS; 2019-02-14)
DX: O48.0 Post-term pregnancy (principal); O99.284 Endocrine, nutritional and metabolic diseases complicating childbirth; E03.9 Hypothyroidism, unspecified; O77.0 Labor and delivery complicated by meconium in amniotic fluid; O66.40 Failed trial of labor, unspecified; Z37.0 Single live birth; Z3A.40 40 weeks gestation of pregnancy
CPT/HCPCS: 01967; 01968; 36415; 51702; 59025; 85027; 86592; 86850; 86900; 86901; A9270-GY; J1650; J1885; J2175; J2250; J2405; J2590; J2765; J3490; J7042; J7120